=== PATIENT | male | born 1950 | race Caucasian/White ===

== ENCOUNTER 2017-10-24 09:00 | Day surgery (SDC) | payer MEDICARE, OTHER ==
[~2017-10-24] VITALS: Ht 177.8 cm; Wt 113.4 kg
[~2017-10-24 09:00] MED LIST: CLARITIN10 MG PO; ESCITALOPRAM OXA5 MG PO; VITAMIN D32000 UNI1 PO
--- NOTE | 2017-10-24 11:32 | NUR ---
[facility]17 [facility]2 [facility]U SLEEPY AND COUGHING. SUCTIONED MOUTH. ANESTHESIA AT BEDSIDE. 1015 PT AWAKE. UP TO BATHROOM. VOIDED. PASSING GAS. BACK AT BEDSIDE GETTING DRESSED. 1036 DC INSTRUCTIONS GIVEN. PT LEFT VIA W/C SIPPING ON WATER.
--- NOTE | 2017-10-28 08:11 | OR ---
[facility] [address], [place] [address] Signed DATE OF OPERATION: 10/24/2017 SURGEON: Bulmaro Chilel MD PREOPERATIVE DIAGNOSES: 1. Personal history of colonic polyps, 2003. 2. Diverticulosis. POSTOPERATIVE DIAGNOSES: 1. Pandiverticulosis. 2. A 5 mm polyps at 110 and 10 cm. 3. Indurated prostate with left side more prominent than the right. PROCEDURE: Colonoscopy with hot biopsy. ESTIMATED BLOOD LOSS: None. INDICATIONS: Derrick is a 67-year-old gentleman, asked to see me for followup colonoscopy. He has had multiple colonic polyps removed as far back as 2003. He gives no family history of colon cancer or polyps. Since I have seen him last, he is now retired and said it is wonderful. He has no lower GI complaints. We know he has a previous history of diverticulosis. On his last occasion, we gave him an enormous amount of Versed and fentanyl and we are still not able to get him asleep. We had an anesthesia provider come and add propofol and help with his airway monitoring. Derrick told me on this occasion, he does have sleep apnea and he uses a CPAP mask. He said that has been wonderful. In the office, I gave him a pamphlet on colonoscopy and we looked at that together along with the risks including, but not limited to, gas bloating, crampy abdominal pain, bleeding, perforation, requiring surgery, and missed diagnosis. In addition, because of the issues we described above, we had an anesthesia provider help us today with increased monitoring and sedation with propofol. He had expressed understanding and wished to proceed. PROCEDURE NOTE: Derrick was taken into our endoscopy suite and placed in the left lateral decubitus position. He was given IV sedation with propofol per our nurse claim service representative. He does have a large tongue and he did need airway management throughout most of the case. A digital rectal exam was performed and his prostate was not particularly enlarged, but it Electronically Signed By: BULMARO CHILEL MD 10/28/17 0811 PATIENT NAME: DERRICK GO OPERATIVE REPORT DATE OF : 50 PHYSICIAN: BULMARO CHILEL MD REPORT #: [id number] REPORT IS CONFIDENTIAL AND NOT TO BE RELEASED WITHOUT AUTHORIZATION [facility] [address], [place] [address] Signed was indurated and he seems like he has a nodule on the left side. He should review this with his primary care provider. The adult colonoscope was introduced and advanced under direct visualization of camera. His prep was good. However, he has a bit of a tortuous left colon and it took quite a bit of additional sedation, abdominal compression, and rotating Derrick into the supine position in order to get the scope up through his left colon. We had to push the scope in and out several times until we finally had it straightened and then with abdominal compression, we were able to advance the scope into the cecum itself. The appendiceal orifice was easily identified along with the ileocecal valve. The scope was then slowly withdrawn. He does have some diverticula in the right colon on this occasion. He also has it on the left. They were moderate in size, moderate in number, and scattered about. At 110 cm, we found a small polyp as well as at 10 cm. Both were easily removed with a hot biopsy forceps. The scope was then retroflexed. There was no additional pathology noted above the anal canal. After this, the gas was suctioned out and the colonoscope removed. Derrick tolerated the procedure quite well. RECOMMENDATIONS: I will see Derrick back in my office in 7 to 14 days to review his results. Bulmaro Chilel MD ALB/MODL /[id number] cc: MD Julio Irby MD Arian Kargar, Electronically Signed By: BULMARO CHILEL MD 10/28/17 0811 PATIENT NAME: DERRICK GO OPERATIVE REPORT DATE OF : 50 PHYSICIAN: BULMARO CHILEL MD REPORT #: [id number] REPORT IS CONFIDENTIAL AND NOT TO BE RELEASED WITHOUT AUTHORIZATION
== END 2017-10-24 10:36 | disposition home or self-care (01) ==
LOC: DS 09:00 → OPS 09:00
PROVIDERS: Colon & Rectal Surgery
PROC: 0DBE8ZX Excision of Large Intestine, Via Natural or Artificial Opening Endoscopic, Diagnostic (ICD-10-PCS; principal; 2017-10-24 08:45)
DX: Z12.11 Encounter for screening for malignant neoplasm of colon (principal); K63.5 Polyp of colon; K57.30 Diverticulosis of large intestine without perforation or abscess without bleeding; L40.9 Psoriasis, unspecified; F41.9 Anxiety disorder, unspecified; Z98.890 Other specified postprocedural states; Z87.891 Personal history of nicotine dependence; Z88.5 Allergy status to narcotic agent; Z88.8 Allergy status to other drugs, medicaments and biological substances; Z79.899 Other long term (current) drug therapy
CPT/HCPCS: 88305; J2250; J2704; J3010; J7120

== ENCOUNTER 2024-11-27 05:40 | Day surgery (SDC) | payer MEDICARE, OTHER ==
[2024-11-25 10:48] VITALS: BP 125/86
[~2024-11-27] VITALS: Ht 177.8 cm; Wt 113.6 kg
[~2024-11-27 05:40] MED LIST changes: +BISOPROLOL FUMA10 MG PO; +CLOBETASOL PROP15 GM; +FLOMAX0.4 MG PO; +MIDAZOLAM HCL 5 MG/5 ML VIAL IV PRN; +NASACORT10.8 ML; +PRADAXA150 MG PO; +TRIAMCINOLONE A15 G1 TOP; +fentaNYL citrate 100 MCG/2 ML VIAL IV PRN
[2024-11-27 06:00] VITALS: BP 118/74
[2024-11-27] MEDS ORDERED: propofoL 200 MG/20 ML VIAL ONE ×2 (06:53→07:41)
[2024-11-27] MEDS ORDERED: LACTATED RINGER'S 1,000 ML IV SCH (07:00)
[2024-11-27] MEDS ORDERED: IBLOOD GLUCOSE TEST STRIP 1 EA TEST VI PRN (07:00)
[2024-11-27] MEDS ORDERED: LIDOCAINE HCL 1% 5 ML SDV INJ ONE (07:00)
[2024-11-27] MEDS ORDERED: LIDOCAINE HCL 2% 5 ML SDV ONE (07:41)
--- NOTE | 2024-11-27 08:13 | NUR ---
11/27/24 0813 Sveta Pierce 0759 PT ARRIVED TO PACU ON 6L VIA MASK AND ORAL AIRWAY IN PLACE. RESP EVEN AND UNLABORED. 0802 PT WOKE AND AIRWAY REMOVED. PT ENCOURAGED TO PASS GAS NEEDED AND IS REORIENTED TO PACU. 0805 O2 MASK REMOVED, PT ROLLED TO BACK AND GRMACING, PT REPORTS SHOULDER PAIN AND PAIN DECREASED WITH POSITION CHANGE. 0810 MD AT BEDSIDE TALKING TO PT. PT AWAKE AND LOOKING AROUND ROOM.
[2024-11-27 08:20] VITALS: BP 93/65
--- NOTE | 2024-11-27 09:50 | OR ---
[facility] [address] [place], [place] [address] Signed DATE OF OPERATION: 11/27/2024 SURGEON: Bulmaro Lagos MD PREOPERATIVE DIAGNOSES: 1. A personal history of colonic polyps starting in 2003 at the age of 53. 2. [place] diverticulosis. POSTOPERATIVE DIAGNOSIS: Mild to moderate henderson diverticulosis. PROCEDURE: Colonoscopy without biopsy. ESTIMATED BLOOD LOSS: None. INDICATIONS: Derrick is a 74-year-old gentleman, asked to see me for his sixth colonoscopy. He started in 2003 at the age of 53 [address] Americo Forte. I helped him through the remainder of his colonoscopies. 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 They have all been small. He has always had diverticulosis. He has been on the five year plan. There is no family history of colon cancer or polyps. He has no lower GI complaints. In the office, I gave him a pamphlet on colonoscopy. We had reviewed the nature of the test. There is risk including, but not limited to gas bloating, crampy abdominal pain, bleeding, perforation requiring surgery, and missed diagnosis. We also reviewed the written instructions for the bowel prep line by line. He practically has not memorized by now. We talked about his Pradaxa in detail. He held it five days prior to the procedure. If there is any biopsies, he is going to hold it seven days after the procedure. Otherwise, he can resume at the next morning. In addition, he is a large man and he does have sleep apnea. He is in chronic atrial fibrillation, flutter. Therefore, he needs monitored anesthesia care propofol infusion as he has in the past. That has worked out very nicely. We also in addition our preop department did get his last cardiac note and note from [facility] and [facility]. We reviewed those in detail. Derrick told me his brother would be taking him home after the procedure. He has expressed understanding and would like to proceed. DESCRIPTION OF PROCEDURE: Derrick was taken into our endoscopy suite and placed in the left lateral decubitus Electronically Signed By: BULMARO LAGOS MD 11/27/24 0950 PATIENT NAME: DERRICK GO OPERATIVE REPORT DATE OF : 50 REPORT #: [id number] PHYSICIAN: BULMARO LAGOS MD PCP: OCTAVIANO HIGH DO REPORT IS CONFIDENTIAL AND NOT TO BE RELEASED WITHOUT AUTHORIZATION [facility] [address] [place], [place] [address] Signed position. He was given monitored anesthesia care propofol infusion per our nurse special programs director. A digital rectal exam was performed. He has no external hemorrhoids. He had good sphincter tone. There were no masses. His prostate is indurated. The adult colonoscope was introduced and advanced under direct visualization of camera. It took some extra propofol and abdominal compression as well as moving Derrick into the supine position in order to get the camera around the hepatic flexure and down into the cecum itself. We could easily see the appendiceal orifice and the ileocecal valve. The scope was slowly withdrawn. Again, he has mild to moderate henderson diverticulosis. They are moderate size, few in number and scattered about. No polyps on this occasion. The scope was retroflexed in the rectum and really no additional pathology above the anal canal. After this, the gas was suctioned out, colonoscope removed. Derrick tolerated the procedure quite well. RECOMMENDATIONS: Derrick is welcome to follow up in 5 years for repeat colonoscopy so long as his health holds up. He will always need monitored anesthesia care. Bulmaro Lagos MD [facility]/MODL /[id number] cc: LAI Sanchez MD Arian Kargar, DO Copies: JIM WILLAMS NP, DAVID A MD BOWER, ANDREW L MD Electronically Signed By: BULMARO LAGOS MD 11/27/24 0950 PATIENT NAME: DERRICK GO OPERATIVE REPORT DATE OF : 50 REPORT #: [id number] PHYSICIAN: BULMARO LAGOS MD PCP: OCTAVIANO HIGH DO REPORT IS CONFIDENTIAL AND NOT TO BE RELEASED WITHOUT AUTHORIZATION [address] [address] Signed OCTAVIANO HIGH DO ~ Electronically Signed By: BULMARO LAGOS MD 11/27/24 0950 PATIENT NAME: DERRICK GO OPERATIVE REPORT DATE OF : 50 REPORT #: [id number] PHYSICIAN: BULMARO LAGOS MD PCP: OCTAVIANO HIGH DO REPORT IS CONFIDENTIAL AND NOT TO BE RELEASED WITHOUT AUTHORIZATION
== END 2024-11-27 08:36 | disposition home or self-care (01) ==
LOC: DS 05:40
PROVIDERS: ATTEND Colon & Rectal Surgery
PROC: 0DJD8ZZ Inspection of Lower Intestinal Tract, Via Natural or Artificial Opening Endoscopic (ICD-10-PCS; principal; 2024-11-27 07:30)
DX: Z12.11 Encounter for screening for malignant neoplasm of colon (principal); K57.30 Diverticulosis of large intestine without perforation or abscess without bleeding; I48.0 Paroxysmal atrial fibrillation; I10 Essential (primary) hypertension; L40.9 Psoriasis, unspecified; G47.33 Obstructive sleep apnea (adult) (pediatric); M85.80 Other specified disorders of bone density and structure, unspecified site; F17.220 Nicotine dependence, chewing tobacco, uncomplicated; E66.09 Other obesity due to excess calories; Z68.35 Body mass index [BMI] 35.0-35.9, adult; Z86.0101 Personal history of adenomatous and serrated colon polyps; Z79.01 Long term (current) use of anticoagulants; Z79.899 Other long term (current) drug therapy; Z88.8 Allergy status to other drugs, medicaments and biological substances
CPT/HCPCS: 00811; J2003; J2704; J7121